=== PATIENT | female | born 1990 | race Caucasian/White ===

== ENCOUNTER → 2016-09-25 | Outpatient (CLI) | payer OTHER ==
[~2016-09-25] MED LIST: CATHETER FLUSH 10 ML SYR IV PRN; IOHEXOL 350 MG/ML 100 ML (OMNIPAQUE 350) VIAL IV ONE; METF500T8; NS 100 ML (IVPB) BAG IV ONE; PHEN37.53
--- OUTSIDE RECORDS SUMMARY | 2016-09-25 12:58 | XMS REPORT | Continuity of Care Document ---
Author Author [facility] Address Unknown Phone Unavailable Allergies Active Description Code Type Severity Reaction Onset Reported/Identified Relationship to Patient Clinical Status Yes ibuprofen Drug Allergy N/A N/A 12/23/2012 Yes Penicillins Drug Allergy N/A N/A 12/23/2012 Medications Problems Date Dx Coded Attending Type Code Diagnosis Diagnosed By 12/23/2012 724.2 lower back pain 12/23/2012 724.2 lower back pain 12/23/2012 724.2 lower back pain 12/23/2012 724.2 lower back pain 12/23/2012 724.2 lower back pain 12/23/2012 DWAYNE THOMSON MD 724.2 lower back pain 12/23/2012 DWAYNE THOMSON MD 724.2 lower back pain 12/23/2012 SETH COLON APRNRICIA R 724.2 lower back pain 12/23/2012 ISAIAH KLEIN HELEN R 724.2 lower back pain 12/23/2012 ISAIAH KLEIN HELEN R 724.2 lower back pain 12/23/2012 DWAYNE THOMSON MD 724.2 lower back pain 12/23/2012 DWAYNE THOMSON MD 724.2 lower back pain 12/23/2012 DWAYNE THOMSON MD 724.2 lower back pain 12/23/2012 DWAYNE THOMSON MD 724.2 lower back pain 12/23/2012 DWAYNE THOMSON MD 724.2 lower back pain 12/23/2012 DWAYNE THOMSON MD 724.2 lower back pain 12/23/2012 DWAYNE THOMSON MD 724.2 lower back pain 12/23/2012 DWAYNE THOMSON MD 724.2 lower back pain 12/23/2012 DWAYNE THOMSON MD 724.2 lower back pain 12/23/2012 DWAYNE THOMSON MD 724.2 lower back pain 12/30/2012 276.51 DEHYDRATION (Na, H2O) 12/30/2012 276.51 DEHYDRATION (Na, H2O) 12/30/2012 276.51 DEHYDRATION (Na, H2O) 12/30/2012 276.51 DEHYDRATION (Na, H2O) 12/30/2012 DWAYNE THOMSON MD 276.51 DEHYDRATION (Na, H2O) 12/30/2012 DWAYNE THOMSON MD 276.51 DEHYDRATION (Na, H2O) 12/30/2012 ISAIAH KLEIN HELEN R 276.51 DEHYDRATION (Na, H2O) 12/30/2012 ISAIAH KLEIN HELEN R 276.51 DEHYDRATION (Na, H2O) 12/30/2012 ISAIAH KLEIN HELEN R 276.51 DEHYDRATION (Na, H2O) 12/30/2012 DWAYNE THOMSON MD 276.51 DEHYDRATION (Na, H2O) 12/30/2012 DWAYNE THOMSON MD 276.51 DEHYDRATION (Na, H2O) 12/30/2012 DWAYNE THOMSON MD 276.51 DEHYDRATION (Na, H2O) 12/30/2012 DWAYNE THOMSON MD 276.51 DEHYDRATION (Na, H2O) 12/30/2012 DWAYNE THOMSON MD 276.51 DEHYDRATION (Na, H2O) 12/30/2012 DWAYNE THOMSON MD 276.51 DEHYDRATION (Na, H2O) 12/30/2012 DWAYNE THOMSON MD 276.51 DEHYDRATION (Na, H2O) 12/30/2012 DWAYNE THOMSON MD 276.51 DEHYDRATION (Na, H2O) 12/30/2012 DWAYNE THOMSON MD 276.51 DEHYDRATION (Na, H2O) 12/30/2012 DWAYNE THOMSON MD 276.51 DEHYDRATION (Na, H2O) 02/25/2013 278.00 OBESITY 02/25/2013 V70.0 EXAM - ROUTINE H&P 02/25/2013 V76.10 visit for: screening exam malignant neoplasm breast 02/25/2013 278.00 OBESITY 02/25/2013 V70.0 EXAM - ROUTINE H&P 02/25/2013 V76.10 visit for: screening exam malignant neoplasm breast 02/25/2013 DWAYNE THOMSON MD 278.00 OBESITY 02/25/2013 DWAYNE THOMSON MD V70.0 EXAM - ROUTINE H&P 02/25/2013 DWAYNE THOMSON MD V76.10 visit for: screening exam malignant neoplasm breast 02/25/2013 DWAYNE THOMSON MD 278.00 OBESITY 02/25/2013 DWAYNE THOMSON MD V70.0 EXAM - ROUTINE H&P 02/25/2013 DWAYNE THOMSON MD V76.10 visit for: screening exam malignant neoplasm breast 02/25/2013 ISAIAH INTERN PRODUCT MARKETING MANAGER, HELEN R 278.00 OBESITY 02/25/2013 ISAIAH INTERN PRODUCT MARKETING MANAGER, HELEN R V70.0 EXAM - ROUTINE H&P 02/25/2013 ISAIAH INTERN PRODUCT MARKETING MANAGER, HELEN R V76.10 visit for: screening exam malignant neoplasm breast 02/25/2013 ISAIAH INTERN PRODUCT MARKETING MANAGER, HELEN R 278.00 OBESITY 02/25/2013 ISAIAH INTERN PRODUCT MARKETING MANAGER, HELEN R V70.0 EXAM - ROUTINE H&P 02/25/2013 ISAIAH KLEIN HELEN R V76.10 visit for: screening exam malignant neoplasm breast 02/25/2013 ISAIAH INTERN PRODUCT MARKETING MANAGER, HELEN R 278.00 OBESITY 02/25/2013 ISAIAH KLEIN HELEN R V70.0 EXAM - ROUTINE H&P 02/25/2013 ISAIAH KLEIN HELEN R V76.10 visit for: screening exam malignant neoplasm breast 02/25/2013 DWAYNE THOMSON MD 278.00 OBESITY 02/25/2013 DWAYNE THOMSON MD V70.0 EXAM - ROUTINE H&P 02/25/2013 DWAYNE THOMSON MD V76.10 visit for: screening exam malignant neoplasm breast 02/25/2013 DWAYNE THOMSON MD 278.00 OBESITY 02/25/2013 DWAYNE THOMSON MD V70.0 EXAM - ROUTINE H&P 02/25/2013 DWAYNE THOMSON MD V76.10 visit for: screening exam malignant neoplasm breast 02/25/2013 DWAYNE THOMSON MD 278.00 OBESITY 02/25/2013 DWAYNE THOMSON MD V70.0 EXAM - ROUTINE H&P 02/25/2013 DWAYNE THOMSON MD V76.10 visit for: screening exam malignant neoplasm breast 02/25/2013 DWAYNE THOMSON MD 278.00 OBESITY 02/25/2013 DWAYNE THOMSON MD V70.0 EXAM - ROUTINE H&P 02/25/2013 DWAYNE THOMSON MD V76.10 visit for: screening exam malignant neoplasm breast 02/25/2013 DWAYNE THOMSON MD 278.00 OBESITY 02/25/2013 DWAYNE THOMSON MD V70.0 EXAM - ROUTINE H&P 02/25/2013 DWAYNE THOMSON MD V76.10 visit for: screening exam malignant neoplasm breast 02/25/2013 DWAYNE THOMSON MD 278.00 OBESITY 02/25/2013 DWAYNE THOMSON MD V70.0 EXAM - ROUTINE H&P 02/25/2013 DWAYNE THOMSON MD V76.10 visit for: screening exam malignant neoplasm breast 02/25/2013 DWAYNE THOMSON MD 278.00 OBESITY 02/25/2013 DWAYNE THOMSON MD V70.0 EXAM - ROUTINE H&P 02/25/2013 DWAYNE THOMSON MD V76.10 visit for: screening exam malignant neoplasm breast 02/25/2013 DWAYNE THOMSON MD 278.00 OBESITY 02/25/2013 DWAYNE THOMSON MD V70.0 EXAM - ROUTINE H&P 02/25/2013 DWAYNE THOMSON MD V76.10 visit for: screening exam malignant neoplasm breast 02/25/2013 DWAYNE THOMSON MD 278.00 OBESITY 02/25/2013 DWAYNE THOMSON MD V70.0 EXAM - ROUTINE H&P 02/25/2013 DWAYNE THOMSON MD V76.10 visit for: screening exam malignant neoplasm breast 02/25/2013 DWAYNE THOMSON MD 278.00 OBESITY 02/25/2013 DWAYNE THOMSON MD V70.0 EXAM - ROUTINE H&P 02/25/2013 DWAYNE THOMSON MD V76.10 visit for: screening exam malignant neoplasm breast 03/01/2013 780.52 insomnia 03/01/2013 DWAYNE THOMSON MD 780.52 insomnia 03/01/2013 DWAYNE THOMSON MD 780.52 insomnia 03/01/2013 HELEN COLON APRN R 780.52 insomnia 03/01/2013 HELEN COLON APRN R 780.52 insomnia 03/01/2013 HELEN COLON APRN R 780.52 insomnia 03/01/2013 DWAYNE THOMSON MD 780.52 insomnia 03/01/2013 DWAYNE THOMSON MD 780.52 insomnia 03/01/2013 BERTO LIRA, DWAYNE Young 780.52 insomnia 03/01/2013 BERTO LIRA, DWAYNE Young 780.52 insomnia 03/01/2013 BERTO LIRA, DWAYNE Young 780.52 insomnia 03/01/2013 DWAYNE THOMSON MD 780.52 insomnia 03/01/2013 DWAYNE THOMSON MD 780.52 insomnia 03/01/2013 DWAYNE THOMSON MD 780.52 insomnia 03/01/2013 DWAYNE THOMSON MD 780.52 insomnia 03/01/2013 DWAYNE THOMSON MD 780.52 insomnia 05/07/2013 DWAYNE THOMSON MD V25.02 CONTRACEPTION - ANY METHOD 05/07/2013 DWAYNE THOMSON MD V25.09 CONTRACEPTIVE COUNSELING - GENERAL 05/07/2013 DWAYNE THOMSON MD V25.02 CONTRACEPTION - ANY METHOD 05/07/2013 DWAYNE THOMSON MD V25.09 CONTRACEPTIVE COUNSELING - GENERAL 05/07/2013 ISAIAH KLEIN HELEN R V25.02 CONTRACEPTION - ANY METHOD 05/07/2013 ISAIAH KLEIN HELEN R V25.09 CONTRACEPTIVE COUNSELING - GENERAL 05/07/2013 ISAIAH KLEIN HELEN R V25.02 CONTRACEPTION - ANY METHOD 05/07/2013 ISAIAH KLEIN HELEN R V25.09 CONTRACEPTIVE COUNSELING - GENERAL 05/07/2013 ISAIAH KLEIN HELEN R V25.02 CONTRACEPTION - ANY METHOD 05/07/2013 ISAIAH KLEIN HELEN R V25.09 CONTRACEPTIVE COUNSELING - GENERAL 05/07/2013 DWAYNE THOMSON MD V25.02 CONTRACEPTION - ANY METHOD 05/07/2013 DWAYNE THOMSON MD V25.09 CONTRACEPTIVE COUNSELING - GENERAL 05/07/2013 DWAYNE THOMSON MD V25.02 CONTRACEPTION - ANY METHOD 05/07/2013 DWAYNE THOMSON MD V25.09 CONTRACEPTIVE COUNSELING - GENERAL 05/07/2013 DWAYNE THOMSON MD V25.02 CONTRACEPTION - ANY METHOD 05/07/2013 DWAYNE THOMSON MD V25.09 CONTRACEPTIVE COUNSELING - GENERAL 05/07/2013 DWAYNE THOMSON MD V25.02 CONTRACEPTION - ANY METHOD 05/07/2013 DWAYNE THOMSON MD V25.09 CONTRACEPTIVE COUNSELING - GENERAL 05/07/2013 BERTO LIRA, DWAYNE Young V25.02 CONTRACEPTION - ANY METHOD 05/07/2013 BERTO LIRA, DWAYNE Young V25.09 CONTRACEPTIVE COUNSELING - GENERAL 05/07/2013 BERTO LIRA, DWAYNE Young V25.02 CONTRACEPTION - ANY METHOD 05/07/2013 BERTO LIRA, DWAYNE Young V25.09 CONTRACEPTIVE COUNSELING - GENERAL 05/07/2013 BERTO LIRA, DWAYNE Young V25.02 CONTRACEPTION - ANY METHOD 05/07/2013 BERTO LIRA, DWAYNE Young V25.09 CONTRACEPTIVE COUNSELING - GENERAL 05/07/2013 BERTO LIRA, DWAYNE Young V25.02 CONTRACEPTION - ANY METHOD 05/07/2013 BERTO LIRA, DWAYNE Young V25.09 CONTRACEPTIVE COUNSELING - GENERAL 05/07/2013 BERTO LIRA, DWAYNE Young V25.02 CONTRACEPTION - ANY METHOD 05/07/2013 BERTO LIRA, DWAYNE Young V25.09 CONTRACEPTIVE COUNSELING - GENERAL 05/07/2013 DWAYNE THOMSON MD V25.02 CONTRACEPTION - ANY METHOD 05/07/2013 BERTO LIRA, DWAYNE Young V25.09 CONTRACEPTIVE COUNSELING - GENERAL 06/23/2013 BERTO LIRA, DWAYNE Young V04.81 FLU SHOT 06/23/2013 ISAIAH KLEIN, HELEN R V04.81 FLU SHOT 06/23/2013 ISAIAH KLEIN, HELEN R V04.81 FLU SHOT 06/23/2013 SETH COLON APRNRICIA R V04.81 FLU SHOT 06/23/2013 BERTO LIRA, DWAYNE Young V04.81 FLU SHOT 06/23/2013 BERTO LIRA, DWAYNE Young V04.81 FLU SHOT 06/23/2013 BERTO LIRA, DWAYNE Young V04.81 FLU SHOT 06/23/2013 BERTO LIRA, DWAYNE Young V04.81 FLU SHOT 06/23/2013 BERTO LIRA, DWAYNE Young V04.81 FLU SHOT 06/23/2013 BERTO LIRA, DWAYNE Young V04.81 FLU SHOT 06/23/2013 BERTO LIRA, DWAYNE Young V04.81 FLU SHOT 06/23/2013 BERTO LIRA, DWAYNE Young V04.81 FLU SHOT 06/23/2013 BERTO LIRA, DWAYNE Young V04.81 FLU SHOT 06/23/2013 BERTO LIRA, DWAYNE Young V04.81 FLU SHOT 08/03/2013 JOSH COLON APRNIA R V72.85 OTHER SPECIFIED EXAMINATION 08/03/2013 ISAIAH KLEIN, HELEN R V72.85 OTHER SPECIFIED EXAMINATION 08/03/2013 SETH COLON APRNRICIA R V72.85 OTHER SPECIFIED EXAMINATION 08/03/2013 DWAYNE THOMSON MD V72.85 OTHER SPECIFIED EXAMINATION 08/03/2013 DWAYNE THOMSON MD V72.85 OTHER SPECIFIED EXAMINATION 08/03/2013 DWAYNE THOMSON MD V72.85 OTHER SPECIFIED EXAMINATION 08/03/2013 DWAYNE THOMSON MD V72.85 OTHER SPECIFIED EXAMINATION 08/03/2013 DWAYNE THOMSON MD V72.85 OTHER SPECIFIED EXAMINATION 08/03/2013 DWAYNE THMOSON MD V72.85 OTHER SPECIFIED EXAMINATION 08/03/2013 DWAYNE THOMSON MD V72.85 OTHER SPECIFIED EXAMINATION 08/03/2013 DWAYNE THOMSON MD V72.85 OTHER SPECIFIED EXAMINATION 08/03/2013 DWAYNE THOMSON MD V72.85 OTHER SPECIFIED EXAMINATION 08/03/2013 DWAYNE THOMSON MD V72.85 OTHER SPECIFIED EXAMINATION 08/19/2013 JOSH COLON APRNIA R 401.1 HYPERTENSION, BENIGN ESSENTIAL 08/19/2013 JOSH COLON APRNIA R 401.1 HYPERTENSION, BENIGN ESSENTIAL 08/19/2013 DWAYNE THOMSON MD 401.1 HYPERTENSION, BENIGN ESSENTIAL 08/19/2013 DWAYNE THOMSON MD 401.1 HYPERTENSION, BENIGN ESSENTIAL 08/19/2013 DWAYNE THOMSON MD 401.1 HYPERTENSION, BENIGN ESSENTIAL 08/19/2013 DWAYNE THOMSON MD 401.1 HYPERTENSION, BENIGN ESSENTIAL 08/19/2013 DWAYNE THOMSON MD 401.1 HYPERTENSION, BENIGN ESSENTIAL 08/19/2013 DWAYNE THOMSON MD 401.1 HYPERTENSION, BENIGN ESSENTIAL 08/19/2013 DWAYNE THOMSON MD 401.1 HYPERTENSION, BENIGN ESSENTIAL 08/19/2013 DWAYNE THOMSON MD 401.1 HYPERTENSION, BENIGN ESSENTIAL 08/19/2013 DWANYE THOMSON MD 401.1 HYPERTENSION, BENIGN ESSENTIAL 08/19/2013 DWAYNE THOMSON MD 401.1 HYPERTENSION, BENIGN ESSENTIAL 09/01/2013 COLON INTERN PRODUCT MARKETING MANAGER, HELEN R 780.4 DIZZINESS AND GIDDINESS 09/01/2013 DWAYNE THOMSON MD 780.4 DIZZINESS AND GIDDINESS 09/01/2013 DWAYNE THOMSON MD 780.4 DIZZINESS AND GIDDINESS 09/01/2013 DWAYNE THOMSON MD 780.4 DIZZINESS AND GIDDINESS 09/01/2013 DWAYNE THOMSON MD 780.4 DIZZINESS AND GIDDINESS 09/01/2013 DWAYNE THOMSON MD 780.4 DIZZINESS AND GIDDINESS 09/01/2013 DWAYNE THOMSON MD 780.4 DIZZINESS AND GIDDINESS 09/01/2013 DWAYNE THOMSON MD 780.4 DIZZINESS AND GIDDINESS 09/01/2013 DWAYNE THOMSON MD 780.4 DIZZINESS AND GIDDINESS 09/01/2013 DWAYNE THOMSON MD 780.4 DIZZINESS AND GIDDINESS 09/01/2013 DWAYNE THOMSON MD 780.4 DIZZINESS AND GIDDINESS 10/20/2013 DWAYNE THOMSON MD 465.9 UPPER RESPIRATORY INFECTION 10/20/2013 DWAYNE THOMSON MD 465.9 UPPER RESPIRATORY INFECTION 10/20/2013 DWAYNE THOMSON MD 465.9 UPPER RESPIRATORY INFECTION 10/20/2013 DWAYNE THOMSON MD 465.9 UPPER RESPIRATORY INFECTION 10/20/2013 DWAYNE THOMSON MD 465.9 UPPER RESPIRATORY INFECTION 10/20/2013 DWAYNE THOMSON MD 465.9 UPPER RESPIRATORY INFECTION 10/20/2013 DWAYNE THOMSON MD 465.9 UPPER RESPIRATORY INFECTION 10/20/2013 DWAYNE THOMSON MD 465.9 UPPER RESPIRATORY INFECTION 10/20/2013 DWAYNE THOMSON MD 465.9 UPPER RESPIRATORY INFECTION 10/20/2013 DWAYNE THOMSON MD 465.9 UPPER RESPIRATORY INFECTION 12/09/2013 DWAYNE THOMSON MD 681.11 PARONYCHIA 12/09/2013 DWAYNE THOMSON MD 681.11 PARONYCHIA 12/09/2013 DWAYNE THOMSON MD 681.11 PARONYCHIA 12/09/2013 DWAYNE THOMSON MD 681.11 PARONYCHIA 12/09/2013 DWAYNE THOMSON MD 681.11 PARONYCHIA 12/09/2013 DWAYNE THOMSON MD 681.11 PARONYCHIA 12/09/2013 DWAYNE THOMSON MD 681.11 PARONYCHIA 12/09/2013 DWAYNE THOMSON MD 681.11 PARONYCHIA 12/09/2013 DWAYNE THOMSON MD 681.11 PARONYCHIA 02/01/2014 DWAYNE THOMSON MD 913.4 INSECT BITE NONVENOMOUS OF ELBOW FOREARM AND WRIST WITHOUT INFECTION 02/01/2014 DWAYNE THOMSON MD 913.4 INSECT BITE NONVENOMOUS OF ELBOW FOREARM AND WRIST WITHOUT INFECTION 02/01/2014 DWAYNE THOMSON MD 913.4 INSECT BITE NONVENOMOUS OF ELBOW FOREARM AND WRIST WITHOUT INFECTION 02/01/2014 DWAYNE THOMSON MD 913.4 INSECT BITE NONVENOMOUS OF ELBOW FOREARM AND WRIST WITHOUT INFECTION 02/01/2014 DWAYNE THOMSON MD 913.4 INSECT BITE NONVENOMOUS OF ELBOW FOREARM AND WRIST WITHOUT INFECTION 02/01/2014 DWAYNE THOMSON MD 913.4 INSECT BITE NONVENOMOUS OF ELBOW FOREARM AND WRIST WITHOUT INFECTION 02/01/2014 DWAYNE THOMSON MD 913.4 INSECT BITE NONVENOMOUS OF ELBOW FOREARM AND WRIST WITHOUT INFECTION 02/01/2014 DWAYNE THOMSON MD 913.4 INSECT BITE NONVENOMOUS OF ELBOW FOREARM AND WRIST WITHOUT INFECTION 03/17/2014 DWAYNE THOMSON MD 924.9 MUSCLE HEMATOMA 03/17/2014 DWAYNE THOMSON MD 924.9 MUSCLE HEMATOMA 03/17/2014 DWAYNE THOMSON MD 924.9 MUSCLE HEMATOMA 03/17/2014 DWAYNE THOMSON MD 924.9 MUSCLE HEMATOMA 03/17/2014 DWAYNE THOMSON MD 924.9 MUSCLE HEMATOMA 03/17/2014 DWAYNE THOMSON MD 924.9 MUSCLE HEMATOMA 03/17/2014 DWAYNE THOMSON MD 924.9 MUSCLE HEMATOMA 04/08/2014 DWAYNE THOMSON MD 780.2 PRESYNCOPE SYNDROME 04/08/2014 DWAYNE THOMSON MD 780.2 PRESYNCOPE SYNDROME 04/08/2014 DWAYNE THOMSON MD 780.2 PRESYNCOPE SYNDROME 04/08/2014 DWAYNE THOMSON MD 780.2 PRESYNCOPE SYNDROME 04/08/2014 DWAYNE THOMSON MD 780.2 PRESYNCOPE SYNDROME 04/08/2014 DWAYNE THOMSON MD 780.2 PRESYNCOPE SYNDROME 06/06/2014 DWAYNE THOMSON MD 785.6 ENLARGEMENT OF LYMPH NODES 06/06/2014 DWAYNE THOMSON MD 785.6 ENLARGEMENT OF LYMPH NODES 06/06/2014 DWAYNE THOMSON MD 785.6 ENLARGEMENT OF LYMPH NODES 06/06/2014 DWAYNE THOMSON MD 785.6 ENLARGEMENT OF LYMPH NODES 06/06/2014 DWAYNE THOMSON MD 785.6 ENLARGEMENT OF LYMPH NODES 07/07/2014 DWAYNE THOMSON MD V25.9 CONTRACEPTION MANAGEMENT 07/07/2014 DWAYNE THOMSON MD V25.9 CONTRACEPTION MANAGEMENT 07/07/2014 DWAYNE THOMSON MD V25.9 CONTRACEPTION MANAGEMENT 07/07/2014 DWAYNE THOMSON MD V25.9 CONTRACEPTION MANAGEMENT Procedures Code [place] [address] UA LONG DIP 12/30 92804 UA LONG DIP 01/06 93108 ROUTINE VENIPUNCTURE 02/26/2013 2000F BLOOD PRESSURE CHECK 08/19/2013 13116 STREP A (IN-HOUSE) 10/20/2013 62069 ROUTINE VENIPUNCTURE 03/17/2014 45621 CBC 03/17/2014 94931 THERAPUTIC INJ SQ/IM 07/07/2014 56440 TEST, URINE (IN-HOUSE) 07/07/2014 J1050 DEPO PROVERA Results Encounters ACCT No. Visit Date/Time Discharge Status Pt. Type Provider Facility Loc./Unit Complaint [id number] 09/29/2014 15:31:00 09/29/2014 23: 59:59 CLS Outpatient DWAYNE THOMSON MD [id number] 09/01/2014 12:15:00 09/01/2014 23: 59:59 CLS Outpatient DWAYNE THOMSON MD [id number] 08/16/2014 14:34:00 08/16/2014 23: 59:59 CLS Outpatient DWAYNE THOMSON MD [id number] 07/07/2014 14:24:00 07/07/2014 23: 59:59 CLS Outpatient DWAYNE THOMSON MD [id number] 06/06/2014 14:34:00 06/06/2014 23: 59:59 CLS Outpatient DWAYNE THOMSON MD [id number] 04/08/2014 07:58:00 04/08/2014 23: 59:59 CLS Outpatient DWAYNE THOMSON MD [id number] 03/17/2014 13:15:00 03/17/2014 23: 59:59 CLS Outpatient DWAYNE THOMSON MD [id number] 02/01/2014 11:50:00 02/01/2014 23: 59:59 CLS Outpatient DWAYNE THOMSON MD [id number] 12/09/2013 10:42:00 12/09/2013 23: 59:59 CLS Outpatient DWAYNE THOMSON MD [id number] 10/20/2013 13:34:00 10/20/2013 23: 59:59 CLS Outpatient DWAYNE THOMSON MD [id number] 09/01/2013 11:00:00 09/01/2013 23: 59:59 CLS Outpatient HELEN COLON APRN [id number] 08/19/2013 10:56:00 08/19/2013 23: 59:59 CLS Outpatient HELEN COLON APRN [id number] 08/03/2013 13:23:00 08/03/2013 23: 59:59 CLS Outpatient HELEN COLON APRN [id number] 06/23/2013 13:48:00 06/23/2013 23: 59:59 CLS Outpatient DWAYNE THOMSON MD [id number] 05/07/2013 15:24:00 05/07/2013 23: 59:59 CLS Outpatient DWAYNE THOMSON MD [id number] 03/01/2013 10:36:00 Document Registration [id number] 02/26/2013 09:13:00 Document Registration [id number] 01/06/2013 12:56:00 Document Registration [id number] 12/30/2012 12:17:00 Document Registration [id number] 12/23/2012 13:58:00 Document Registration
--- NOTE | 2016-09-25 14:14 | Diagnostic Imaging Report ---
Appendix ultrasound. INDICATION: Right lower quadrant pain There are no prior studies available for comparison. Appendix could not be visualized. There is no adenopathy or free fluid in the right lower quadrant to suggest an acute inflammatory/infectious process. Even so, if clinical concern regarding acute appendicitis exists and further imaging is desired, then CT would be recommended. IMPRESSION: The appendix could not be identified. Recommendations as above. Dictated by: Dictated on workstation # [id number]
--- NOTE | 2016-09-25 15:34 | Diagnostic Imaging Report ---
PROCEDURE: CT abdomen and pelvis with contrast, rule out appendicitis. TECHNIQUE: Multiple contiguous axial images were obtained through the abdomen and pelvis after the administration of intravenous contrast. INDICATION: Right lower quadrant pain. FINDINGS: The appendix is directed inferiorly off the lower pole of the cecum and is normal in caliber with no mural hyperenhancement, no wall thickening and no periappendiceal edema. There are no findings of appendicitis. There is a small right adnexal cyst presumed ovarian measuring 2.4 x 2.0 cm. The uterus and left adnexa appeared normal. The urinary bladder appeared normal. There is no evidence for diverticulitis. The lung bases were clear. The liver, gallbladder, bile ducts, spleen, adrenals and pancreas were normal. There is no hydronephrosis. The kidneys appeared normal. Some fat-containing low-density jaiden-aortic retroperitoneal lymph nodes all measuring less than 1 cm likely of a reactive nature. No mesenteric adenopathy or mass. The osseous structures of the abdomen and pelvis had an unremarkable appearance and no inflammatory process is identified. No abdominal wall defect or hernia. IMPRESSION: Normal appendix, unobstructed urinary tracts, no inflammatory process, obstructive features or acute appearing abnormalities. Small right adnexal cyst presumed dominant ovarian follicle, some low density likely reactive borderline periaortic retroperitoneal nodes. Pertinent results of this exam were left on the ordering clinician's answering service at the number where call report was requested prior to this dictation. Dictated by: Dictated on workstation # [id number]
== END ==
LOC: RAD 12:54
PROVIDERS: ATTEND Nurse Practitioner Community Health
DX: R10.31 Right lower quadrant pain (principal)
CPT/HCPCS: 74177; 76705